=== PATIENT | male | born 1980 | race Caucasian/White ===

== ENCOUNTER 2019-04-30 14:10 | Day surgery (SDC) | payer OTHER ==
[~2019-04-30] VITALS: Ht 175.3 cm; Wt 111.2 kg
[2019-04-30] MEDS ORDERED: LACTATED RINGERS 1,000 ML IV SCH (14:33)
[2019-04-30 14:47] VITALS: BP 149/108
[2019-04-30] MEDS ORDERED: HYDR50TA13 PO (14:54)
[2019-04-30] MEDS ORDERED: ESCI5TAB PO (14:54)
[2019-04-30] MEDS ORDERED: KETO10TA PO (14:54)
[2019-04-30] MEDS ORDERED: PLEASE ENTER ALLERGIES MC SCH (15:00)
[2019-04-30] MEDS ORDERED: PLEASE ENTER HEIGHT AND WEIGHT MC SCH (15:00)
[2019-04-30] MEDS ORDERED: LORazepam 2 MG/ML, 1ML IVPush STA (15:33)
[2019-04-30] MEDS ORDERED: LORazepam 2 MG/ML, 1ML ONE (15:35)
[2019-04-30] MEDS ORDERED: FENTANYL PF 100 MCG/2ML ONE ×2 (16:50→18:52)
[2019-04-30] MEDS ORDERED: MIDAZOLAM 1 MG/ML, 2ML ONE (16:50)
[2019-04-30] MEDS ORDERED: ROCURONIUM 10MG/ML,5ML ONE (17:45)
[2019-04-30] MEDS ORDERED: DEXAMETHASONE 4 MG/ML, 1ML ONE (17:45)
[2019-04-30] MEDS ORDERED: GLYCOPYRROLATE 0.2MG/1ML, 5ML ONE (17:45)
[2019-04-30] MEDS ORDERED: PROPOFOL 10 MG/ML, 20ML ONE (17:45)
[2019-04-30] MEDS ORDERED: SUCCINYLCHOLINE 20 MG/ML, 10ML ONE ×2 (17:45→17:46)
[2019-04-30] MEDS ORDERED: ONDANSETRON 2MG/ML, 2ML ONE (17:45)
[2019-04-30] MEDS ORDERED: NEOSTIGMINE 1 MG/ML, 10ML ONE (17:45)
[2019-04-30] MEDS ORDERED: CEFAZOLIN 1,000 MG ONE (17:45)
[2019-04-30] MEDS ORDERED: FENTANYL PF 100 MCG/2ML IV PRN (18:00)
[2019-04-30] MEDS ORDERED: KETOROLAC 30 MG/1 ML IV PRN (18:00)
[2019-04-30] MEDS ORDERED: MEPERIDINE/PF 25MG/0.5ML IVPush PRN (18:00)
[2019-04-30] MEDS ORDERED: OXYcodone 5 MG/5 ML ORAL.SOL UDC PO PRN (18:00)
[2019-04-30] MEDS ORDERED: LABETALOL 5MG/ML, 20ML IV PRN (18:00)
[2019-04-30] MEDS ORDERED: ALBUTEROL SULFATE 2.5 MG/3 ML NPPB PRN (18:00)
[2019-04-30] MEDS ORDERED: PROMETHAZINE 25 MG/ML, 1ML IV PRN (18:00)
[2019-04-30] MEDS ORDERED: hydrALAzine 20 MG/ML, 1ML IV PRN (18:00)
[2019-04-30] MEDS ORDERED: DIAZEPAM 5 MG/ML, 2ML IVPush PRN (18:00)
[2019-04-30] MEDS ORDERED: ACETAMINOPHEN 325 MG TABLET PO PRN (18:00)
[2019-04-30] MEDS ORDERED: HYDROmorphone 2 MG/ML, 1ML IVPush PRN (18:00)
[2019-04-30] MEDS ORDERED: OXYcodone 5 MG/5 ML ORAL.SOL UDC ONE (18:52)
[2019-04-30] MEDS ORDERED: ACETAMINOPHEN 325 MG TABLET ONE (18:52)
[2019-04-30] MEDS ORDERED: ONDANSETRON 2MG/ML, 2ML IV PRN (20:30)
[2019-04-30] MEDS ORDERED: MORPHINE SULFATE 4 MG/ML, 1ML IV PRN (20:30)
== END 2019-04-30 20:30 | disposition home or self-care (01) ==
LOC: OR 14:10 → 4NE 19:20 → OR 20:30
PROVIDERS: ATTEND Urology
DX: N20.1 Calculus of ureter (principal); Z79.899 Other long term (current) drug therapy; Z91.018 Allergy to other foods
CPT/HCPCS: 52353; 74018; 82360; 87086; 88300; C1726; C1758; J0330; J0690; J1100; J2060; J2250; J2405; J7120; 76000; G0378; J2704; J2710; J3010